=== PATIENT | female | born 1985 | race Asian ===

== ENCOUNTER → 2020-08-04 | Outpatient (CLI) | payer BC ==
[~2020-08-04] MED LIST: ATIVAN 1MG T1 MG/TAB PO; MULTIVITAMIN1 TA1 PO; ORTHO TRI-CYCLE1 TAB PO; PRENATAL1 TA2 PO
== END ==
LOC: ZLAB.KSTAT 14:59
DX: U07.1 COVID-19 (principal); J01.90 Acute sinusitis, unspecified